=== PATIENT | female | born 1955 | race Two or more races ===

== ENCOUNTER 2019-03-16 09:31 | Emergency (ER) | payer MEDICARE, MEDICAID ==
[~2019-03-16] VITALS: Ht 162.6 cm; Wt 72.6 kg
[~2019-03-16 09:31] MED LIST: ASPI-495 PO; ASPI-605 PO; ASPI-833; BP MEDS; THYROID PILL
[2019-03-16 09:43] VITALS: BP 130/77
[2019-03-16] MEDS ORDERED: predniSONE 20 MG TABLET PO ONE (10:00)
[2019-03-16] MEDS ORDERED: predniSONE 20 MG TABLET ONE (10:11)
--- NOTE | 2019-03-16 10:15 | NUR ---
Patient discharged to home in stable condition. Written and verbal after care instructions given. Patient verbalizes understanding of instruction.
== END 2019-03-16 10:24 | disposition home or self-care (01) ==
LOC: ER 09:38
DX: T63.481A Toxic effect of venom of other arthropod, accidental (unintentional), initial encounter (principal); Z79.82 Long term (current) use of aspirin; Y92.89 Other specified places as the place of occurrence of the external cause
CPT/HCPCS: 99283; J7512